=== PATIENT | male | born 1985 | race Caucasian/White ===

== ENCOUNTER 2016-06-29 22:08 | Emergency (ER) | payer BC ==
[2016-06-29 22:31] VITALS: BP 180/104; BMI 67.9
--- NOTE | 2016-06-29 23:29 | DR.GENAD ---
HPI - PCP Primary Care Physician: PILAR AGUIRRE - HPI Comment HPI Comment: As below; no penile discharge, itching or burning, fever or chills. - Complaint/Symptoms Chief Complaint:: PT STATES" I HAVE PULLED SOMETHING IN MY RT TESTICLE IT IS SWOLLEN AND VERY PAINFUL. THE SWELLING JUST STARTED TODAY THE PAIN HAS BEEN THERE FOR 2 DAYS" - Source History Provided: Patient - Mode of Arrival Mode of Arrival: Ambulatory - Timing Onset of Chief Complaint: 06/27/16 PMH - PMH Past Medical History: Yes Past Medical History: Diabetes, Hypertension Past Surgical History: No - Family History History of Family Medical Conditions: Yes Family Medical History: Diabetes Mellitus, Hypertension - Social History Type of Tobacco Use: Cigarettes Does any household member use tobacco: No Alcohol Use: None Do you use any recreational Drugs:: No Lives With: Family Lives Where: Home - infectious screening In the last 2 months have you had wt loss of >10#?: NO Have you had fever, night sweats or hemotysis?: No Have you traveled outside the country in the last 6 months?: No Isolation: Standard ROS - Review of Systems Constitutional: No Symptoms Reported Respiratoy: No Symptoms Reported Cardiovascular: No Symptoms Reported Gastrointestinal/Abdominal: No Symptoms Reported Genitourinary: See HPI Neurological: No Symptoms Reported PE - Vital Signs Vitals: Temperature 99.2 F Pulse Rate 67 Respiratory Rate 18 Blood Pressure 180/104 O2 Sat by Pulse Oximetry 99 - General Limitations: No Limitations General Appearance: Alert - Head Head Exam: Normal Inspection - Neck Neck Exam: Normal Inspection - Chest Chest Inspection: Normal Inspection - Respiratory Respiratory Exam: Normal Lung Sounds Bilat - Cardiovascular Cardiovascular Exam: Regular Rate - Neurologic Neurological Exam: Alert, Oriented X3 - Skin Skin Exam: Warm (exam limited by body habitus; right testicle swollen, tender, no mass) ROR - XRAY XRAY Interpreted by: Radiologist (right hydrocele, epididymitis) - Diagnosis Discharge Problem: Epididymitis Hydrocele Qualifiers: Hydrocele type: other Qualified Code(s): N43.2 - Other hydrocele - Discharge Plan Disposition: 01 HOME, SELF-CARE Condition: Stable Prescriptions: Doxycycline (Monohydrate) [Doxycycline Monohydrate] 100 mg PO BID #20 cap Hydrocodone-Acetaminophen [Hydrocodone/Acetaminophen 5-325 mg] 1 tab PO Q4-6H PRN #10 tab PRN Reason: - Follow ups/Referrals Follow ups/Referrals: CONOR MO [CONSULTING PHYSICIAN] - 3 days - Instructions Instructions: Epididymitis
--- NOTE | 2016-06-30 00:37 | US ---
Ultrasound scrotum Indication: Swelling and painful right testis. Technique: Dynamic grayscale and Doppler imaging through the scrotum. Findings: The right testis measures 3.2 x 1.7 x 2.3 cm. The right epididymis measures 9 mm. The left testis measures 3.6 x 1.6 x 3.8 cm. The right epididymis measures 4 mm. There is right hydrocele and heterogeneous appearance to the epididymis. Mild hyperemia to the right suggested. Impression: Right hydrocele and increased in size epididymis on the right with heterogeneous echotex ture and increased blood flow suggest acute epididymitis. Followup to resolution to exclude underlyi ng process given heterogeneous appearance. Reported By:
[2016-06-30] MEDS ORDERED: ROCEPHIN VIAL 250 MG IM ONE (01:00)
[2016-06-30] MEDS ORDERED: ROCEPHIN VIAL 250 MG ONE (01:08)
[2016-06-30] MEDS ORDERED: XYLOCAINE 1 % (PLAIN) ONE (01:08)
== END 2016-06-30 01:22 | disposition home or self-care (01) ==
LOC: ER 22:08
DX: N45.1 Epididymitis (principal); N43.2 Other hydrocele
CPT/HCPCS: 76870; 96372; 99283; J0696; J2001